=== PATIENT | male | born 1980 | race African-American/Black ===

== ENCOUNTER 2017-01-21 20:06 | Emergency (ER) | payer OTHER ==
--- NOTE | ~2017-01-21 | CR72 ---
[facility] A Service of [facility] & [facility] RADIOLOGY TEXT RESULTS PATIENT: KEE KELLER LOCATION: [facility] : 78 UNIT #: [id number] AGE: [address]: Sheldon Grace MD SEX: M ORDER DR: [id number] [facility] [address] [place], [place] [address] [id number] E MR#: [id number] #: [id number] NAME: KEE KELLER : 1980 SEX: M STUDY DATE/TIME: 01/21/2017 20:44 UNIT: [facility] ROOM: STUDY DESCRIPTION: CR Chest Single View Portable Attending Physician: Sheldon Grace M.D. Ordering Physician: Sheldon Grace M.D. MEDICAL IMAGING REPORT This report is preliminary unless electronic signature is present EXAM Portable chest 01/21/17 INDICATIONS Chest pain radiating to the abdomen for 2 days. FINDINGS AP portable chest compared with 03/16/2014. There is borderline cardiac enlargement. Lungs are clear. No pneumothorax. IMPRESSION Borderline cardiomegaly. No acute findings in the chest. Dictated by... José Corea Jr., M.D. THIS IS AN ELECTRONICALLY VERIFIED REPORT José Corea Jr., M.D. at 01/22/2017 8:47 PM CHRISSY/steven TD: 01/22/2017 08:01 JOB #: [id number] MEDICAL IMAGING REPORT Page 1 of 1 COPY
--- NOTE | ~2017-01-21 | EKG ---
PATIENT: KEE KELLER UNIT #: [id number] Ventricular Rate: 140 BPM Atrial Rate: 140 BPM P-R Interval: 120 ms QRS Duration: 80 ms Q-T Interval: 350 ms QTC Calculation(Bezet): 534 ms P [place]: 37 degrees Calculated R [place]: 47 degrees Calculated T [place]: 68 degrees Diagnosis Line: Sinus tachycardia Diagnosis Line: T wave abnormality, consider lateral ischemia Diagnosis Line: Abnormal ECG Diagnosis Line: When compared with ECG of 16-MAR-2014 11:43, Diagnosis Line: Vent. rate has increased BY 70 BPM Diagnosis Line: QRS voltage has decreased Diagnosis Line: Non-specific change in ST segment in Anterior Diagnosis Line: leads Diagnosis Line: Nonspecific T wave abnormality, worse in Inferior Diagnosis Line: leads Diagnosis Line: Inverted T waves have replaced nonspecific T wave Diagnosis Line: abnormality in Lateral leads Diagnosis Line: Confirmed by GINGER SHAHID MD ([id number]) on Diagnosis Line: 01/23/2017 3:17:14 PM INTERPRETING MD: ZEHRA ARTEAGA
--- NOTE | ~2017-01-21 | CT16 ---
[facility] A Service [facility] RADIOLOGY TEXT RESULTS PATIENT: KEE KELLER LOCATION: [facility] : 78 UNIT #: [id number] AGE: [address]: Sheldon Grace MD SEX: M ORDER DR: [id number] [facility] [address] [place], [place] [address] [id number] E MR#: [id number] Acc #: [id number] NAME: KEE KELLER : 1980 SEX: M STUDY DATE/TIME: 01/21/2017 23:14 UNIT: [facility] ROOM: STUDY DESCRIPTION: CT Angio Chest for PE Attending Physician: Sheldon Grace M.D. Ordering Physician: Sheldon Grace M.D. Primary Care Physician: Primary Care Physician No MEDICAL IMAGING REPORT This report is preliminary unless electronic signature is present EXAM CTA chest PE protocol INDICATIONS Fever. Midsternal chest pain for the past 2 weeks. PROCEDURE Contrast-enhanced CTA of the chest, attention opacification of the pulmonary arteries. The CT exam was performed with one or more of the following radiation dose reduction techniques: automatic exposure control, adjustment of mA and/or kV according to patient size, and iterative reconstruction. Coronal 3-D MIP sagittal reformatted images reconstructed submitted.. The CT exam was performed with one or more of the following radiation dose reduction techniques: automatic exposure control, adjustment of mA and/or kV according to patient size, and iterative reconstruction. COMPARISON: None FINDINGS There is a large pericardial effusion, measuring approximately 3.4 cm along the posterior left heart border. No evidence for pulmonary embolus. No adenopathy, or evidence for acute aortic injury. Linear atelectasis in the lower lobes. No dense consolidation. Refer to separately dictated abdomen and pelvis CT for findings below the diaphragm. No aggressive appearing bone lesion. [facility] A Service [facility] RADIOLOGY TEXT RESULTS PATIENT: KEE KELLER LOCATION: [facility] : 78 UNIT #: [id number] AGE: [address]: Sheldon Grace MD SEX: M ORDER DR: IMPRESSION 1. Large pericardial effusion. 2. No evidence for pulmonary embolus. Dictated by... Chu Delvalle M.D. THIS IS AN ELECTRONICALLY VERIFIED REPORT Chu Delvalle M.D. at 01/23/2017 9:57 PM ARACELI/max TD: 01/22/2017 09:49 JOB #: [id number] MEDICAL IMAGING REPORT Page 1 of 1 COPY
--- NOTE | ~2017-01-21 | CT2 ---
[facility] A Service of [facility] RADIOLOGY TEXT RESULTS PATIENT: KEE KELLER LOCATION: [facility] : 78 UNIT #: [id number] AGE: [address]: Shedlon Grace MD SEX: M ORDER DR: [id number] [facility] [address] [place], [place] [address] [id number] E MR#: [id number] Acc #: [id number] NAME: KEE KELLER : 1980 SEX: M STUDY DATE/TIME: 01/21/2017 22:18 UNIT: [facility] ROOM: STUDY DESCRIPTION: CT Abd and Pelv W Cont Attending Physician: Sheldon Grace M.D. Ordering Physician: Sheldon Grace M.D. Primary Care Physician: Primary Care Physician No MEDICAL IMAGING REPORT This report is preliminary unless electronic signature is present EXAM CT abdomen pelvis with contrast INDICATIONS Fever. Midsternal chest pain. Fatigue. Diarrhea for the past 2 weeks. PROCEDURE Contrast-enhanced CT of the abdomen and pelvis. The CT exam was performed with one or more of the following radiation dose reduction techniques: automatic exposure control, adjustment of mA and/or kV according to patient size, and iterative reconstruction. COMPARISON: None FINDINGS Refer to the separately dictated CTA of the chest for thoracic findings. The liver is not frankly cirrhotic in morphology. There is a small amount of perihepatic fluid as well as periportal edema. The liver is enlarged measuring 25.9 cm. There is diffuse gallbladder wall thickening or pericholecystic fluid. The spleen, kidneys, adrenal glands, pancreas are unremarkable. There are no radiodense gallstones. The bowel loops are nondilated. Pelvis with contrast: Trace amount of pelvic fluid. No aggressive appearing bone lesion. IMPRESSION 1. Significant hepatomegaly. 2. Perihepatic fluid. Periportal edema and gallbladder wall thickening [facility] A Service of [facility] RADIOLOGY TEXT RESULTS PATIENT: KEE KELLER LOCATION: [facility] : 78 UNIT #: [id number] AGE: [address]: Sheldon Grace MD SEX: M ORDER DR: versus pericholecystic fluid. Correlate for the possibility of acute liver inflammation. This could also be related to overall volume status but there is only minimal fluid seen elsewhere in the abdomen. 3. Refer to the separately dictated CTA of the chest for thoracic findings. Dictated by... Chu Delvalle M.D. THIS IS AN ELECTRONICALLY VERIFIED REPORT Chu Delvalle M.D. at 01/23/2017 9:57 PM ARACELI/max TD: 01/22/2017 09:45 JOB #: [id number] MEDICAL IMAGING REPORT Page 1 of 1 COPY
[~2017-01-21 20:06] MED LIST: AMOXICILLIN PO; BENZONATATE PO; FLEXERIL10 MG PO; MEDROL PO; ORUDIS75 M1 DOB; PHENERGAN DM
[2017-01-21 21:26] LABS: BASOPHIL# 0.1 X10e3 (0-0.3); BASOPHIL% 0.6 % (0-2.5); EOSINOPHIL% 0.2 % (0.0-7.0); HEMATOCRIT 34.2 % (38.0-50.0); HEMOGLOBIN 11.3 gm/dL (13.0-16.0); LYMPHOCYTE# 2.9 X10e3 (1.0-3.5); LYMPHOCYTE% 28.8 % (17.0-45.0); MEAN CELL VOLUME 81.4 FL (83-96); MEAN CORPUSCULAR HEMOGLOBIN 26.8 PG (28-34); MEAN PLATELET VOLUME 7.6 FL (6.5-11.5); MONOCYTE# 0.9 X10e3 (0-1.0); MONOCYTE% 8.9 % (3.0-12.0); NEUTROPHIL# 6.1 X10e3 (1.5-7.1); NEUTROPHIL% 61.5 % (40-75); PLATELET COUNT 409 X10e3 (140-420)
[2017-01-21 21:27] LABS: DIFF IND NO
[2017-01-21 21:36] LABS: POC - CKMB <1.0 ng/mL (0.0-7.9); POC - TROPONIN <0.05 ng/mL (<=0.05)
[2017-01-21 21:41] LABS: INR 1.1; PARTIAL THROMBOPLASTIN TIME 31.3 SECONDS (23.5-31.3); PROTHROMBIN TIME (PATIENT) 11.3 SECONDS (9.6-11.5)
[2017-01-21 21:50] LABS: ALBUMIN SERUM 4.2 g/dL (3.5-5.0); BILIRUBIN, DIRECT 0.2 mg/dL (0.0-0.2); BILIRUBIN,INDIRECT 0.4 mg/dL (0.0-0.9); BILIRUBIN,TOTAL 0.6 mg/dL (0.2-2.0); BUN/CREATININE RATIO 9.09; CREATININE SERUM 1.1 mg/dL (0.6-1.4); GLOM FILT RATE Estimated 98.9 mL/min (>60); POTASSIUM 3.5 mmol/L (3.5-5.1); PROTEIN TOTAL SERUM 7.9 g/dL (6.0-8.3)
[2017-01-21 22:15] LABS: URINE SOURCE CLEAN CATCH
[2017-01-21 22:18] LABS: URINE APPEARANCE CLEAR; URINE BLOOD NEG (NEG); URINE COLOR DK YELLOW; URINE GLUCOSE NEG (NEG); URINE KETONE NEG (NEG); URINE LEUKOCYTE ESTERASE NEG (NEG); URINE NITRATE NEG (NEG); URINE PROTEIN 1+ (NEG); URINE SPECIFIC GRAVITY 1.031 (1.003-1.035)
[2017-01-21 22:21] LABS: URINE BACTERIA AUWI NEG (NEGATIVE); URINE SQUAMOUS EPITHELIAL CELL NONE SEEN /[HPF]; UWBCS1 AUWI 0-2 (0-5)
[2017-01-21 22:24] LABS: CULTURE INDICATED? NO; URINE BILIRUBIN NEG (NEG)
[2017-01-21 22:28] LABS: AMPHETAMINE NEG (NEG); BARBITURATES NEG (NEG); BENZODIAZEPINES NEG (NEG); COCAINE NEG (NEG); MARIJUANA POS (NEG); OPIATES NEG (NEG); TRICYCLIC ANTIDEPRESSANTS NEG (NEG); U METHADONE NEG (NEG)
[2017-01-21 22:32] LABS: INFLUENZA A NEG (NEG); INFLUENZA B NEG (NEG)
[2017-01-22 00:19] LABS: POC - CKMB <1.0 ng/mL (0.0-7.9); POC - TROPONIN <0.05 ng/mL (<=0.05)
== END 2017-01-22 04:15 ==
LOC: CED 20:06
PROVIDERS: Emergency Medicine
DX: A41.9 Sepsis, unspecified organism (principal); I31.3 Pericardial effusion (noninflammatory)
CPT/HCPCS: 36415; 71010; 71275; 74177; 80048; 80076; 80307; 81003; 82553; 83605; 83690; 83880; 84484; 85025; 85610; 85730; 87040; 87651; 87804; 93005; 96361; 96365; 96375; 99291; J2543; J3370; Q9967